=== PATIENT | male | born 1965 | race Two or more races ===

== ENCOUNTER → 2024-12-10 | Outpatient (CLI) | payer MEDICAID, SELFPAY ==
--- NOTE | 2024-12-10 08:30 | XR_ITS ---
Examination: MRI lumbar spine without contrast Date and time of exam: December 10, 2024 at 0918 hrs. Indications: Low back pain radiating to both legs beginning 3 years ago Technique: Multiple MRI axial and sagittal sections lumbar spine. Sagittal T2-weighted images, TR 3500, TE 118 T1 weighted transverse sections, TR 688 T8.5, T2-weighted sagittal sections T1 weighted sagittal sections TR 621, TE 30 T2 axial sections, TR 4, 190, TE 84. Findings: Spondylolisthesis L5 on S1 Advanced degenerative disc disease L4-L5, moderate degenerative disc disease L5-S1 L5-S1 marked left facet arthropathy narrowing the left lateral margin of the thecal sac, 8mm central lumbar disc bulge extending to the left foraminal region with severe left L5 ganglionic compression L4-L5 4 mm central lumbar disc bulge More cephalad levels unremarkable Impression: L5-S1 marked left facet arthropathy narrowing the left lateral margin of the thecal sac, 8mm central lumbar disc bulge extending to the left foraminal region with severe left L5 ganglionic compression L4-5 4 mm central lumbar disc bulge
== END | disposition home or self-care (01) ==
PROVIDERS: PCP Registered Nurse Community Health; Referring Provider Registered Nurse Community Health; Visit Provider Registered Nurse Community Health
DX: M48.07 Spinal stenosis, lumbosacral region (principal); G95.20 Unspecified cord compression; M51.369 Other intervertebral disc degeneration, lumbar region without mention of lumbar back pain or lower extremity pain
CPT/HCPCS: 72148

== ENCOUNTER 2025-09-13 19:16 | Emergency (ER) | payer MEDICAID, SELFPAY ==
[2025-09-13 19:39] VITALS: BP 183/98; PULSE 61; RESP 19; TEMP 36.8; O2SAT 99; BMI 28.0
--- NOTE | 2025-09-13 19:43 | PD.EDRME ---
Rapid Medical Screening Exam E Arrival date/time: 09/13/25 19:16 Chief Complaint: Abdominal Pain Time Seen by Provider: 09/13/25 19:30 Vital signs: Vital Signs Temperature 98.3 F 09/13/25 19:39 Pulse Rate 61 09/13/25 19:39 Respiratory Rate 19 09/13/25 19:39 Blood Pressure 183/98 H 09/13/25 19:39 Pulse Oximetry (%) 99 09/13/25 19:39 Oxygen Delivery Method Room Air 09/13/25 19:39 [facility] Narrative: N/V/D, abdominal pain started today Exam: Epigastric tenderness. No acute distress Clinical Impression: Abdominal pain
--- NOTE | 2025-09-13 19:44 | EKG_ITS ---
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
[2025-09-13] MEDS: KETOROLAC INJ 30 MG/ML VIAL IM (20:00)
[2025-09-13 20:36] LABS: Collection Type, Urine Clean Catch; Squamous Epithelial Cell,Urine 0 /hpf (0-5)
[2025-09-13 20:43] LABS: Bacteria,Urine Rare; Bilirubin,Urine Negative (Negative); Blood,Urine Negative (Negative); Clarity,Urine Clear (Clear/Hazy); Color,Urine Yellow (Lt Yel-Yel); Glucose, Urine 2+ (Negative); Ketones,Urine 2+ (Negative); Leukocyte Esterase,Urine Negative (Negative); Nitrite,Urine Negative (Negative); PH,Urine 8.5 (5.0-7.0); Protein,Urine 1+ (Neg - Trace); RBC,Urine 7 /hpf (0-3); Specific Gravity,Urine 1.029 (1.001-1.035); Urobilinogen,Urine Negative mg/dL (0.0-1.0); WBC,Urine < 1 /hpf (0-5)
[2025-09-13 21:23] LABS: Basophils # (Auto) 0.0 Thou/mm3 (0.0-0.2); Basophils % (Auto) 0 % (0-2.5); Eosinophils # (Auto) 0.0 Thou/mm3 (0.0-0.5); Eosinophils % (Auto) 0 % (0-10); Hematocrit 39.3 % (41.0-53.0); Hemoglobin 14.3 g/dL (13.5-16.0); Immature Granulocytes Auto 0.08 Thou/mm3 (0.00-0.00); Lymphocytes # (Auto) 1.4 Thou/mm3 (1.0-4.8); Lymphocytes % (Auto) 10 % (10-50); Mean Corpuscular HGB Conc 36.4 g/dl (31.0-37.0); Mean Corpuscular Hemoglobin 29.9 pg (25.0-35.0); Mean Corpuscular Volume 82 fL (80-100); Monocytes # (Auto) 0.4 Thou/mm3 (0.0-0.8); Monocytes % (Auto) 3 % (0-12); Neutrophils # (Auto) 12.3 Thou/mm3 (1.8-7.7); Neutrophils % (Auto) 87 % (37-80); Nucleated Red Blood Cell # 0.00 Thou/mm3 (0.00-0.00); Nucleated Red Blood Cell % 0 /100 WBC (0); Platelet Count 209 Thou/mm3 (140-440); RDW Standard Deviation 37.5 fL (35.1-43.9); Red Blood Count 4.78 Miln/mm3 (4.50-5.90); White Blood Count 14.1 Thou/mm3 (3.8-10.6)
[2025-09-13 22:00] LABS: Alanine Aminotransferase 35 U/L (10-49); Albumin, Serum 4.8 gm/dL (3.5-5.0); Albumin/Globulin Ratio 1.8 (1.2-2.2); Alkaline Phosphatase 97 U/L (46-116); Anion Gap 11 (7-16); Aspartate Amino Transferase 30 U/L (0-34); BUN/Creatinine Ratio 11 Ratio (12-20); Bilirubin,Total 0.5 mg/dL (0.3-1.2); Blood Urea Nitrogen 10 mg/dL (9-23); Calcium 9.4 mg/dL (8.3-10.6); Calcium (Corrected) 9.4 mg/dL (8.5-10.1); Carbon Dioxide 27.1 mMol/L (20.0-31.0); Chloride 105 mMol/L (98-107); Creatinine (Component) 0.9 mg/dL (0.6-1.3); Estimated Creatinine Clearance 98.5 mL/min (>60); Globulin 2.6 gm/dL (2.3-3.5); Glucose 144 mg/dL (74-106); Lipase 27 U/L (12-53); Osmolality,Calculated 286 (275-295); Potassium 3.2 mMol/L (3.4-5.1); Sodium 143 mMol/L (136-145); Total Protein 7.4 gm/dL (5.7-8.2); Troponin I < 0.020 ng/mL (0.0-0.045); eGFR > 60 See Note
--- NOTE | 2025-09-13 22:25 | XR_ITS ---
Examination: CT abdomen with intravenous contrast CT pelvis with intravenous contrast 2-D coronal reconstructions 2-D sagittal reconstructions Date and time of exam: September 13, 2025, 11:43 p.m., comparison May 15, 2024 INDICATIONS: Generalized abdominal pain nausea vomiting 1 week worse today. CTDI: vol (mGy) 9.59 DLP: (mGycm) 592 Technique: Multiple axial sections of the abdomen and pelvis have been obtained. 64 slice high-resolution scanner used. 3 mm axial sections have been obtained, post intravenous injection 60 cc Isovue-370 2-D sagittal, coronal reconstructions obtained. Low dose protocols were performed. One or more of the following dose reduction techniques were used; automated exposure control, adjustment of the mA and/or KV according to patient size, use of iterative reconstruction technique. Findings: 10 mm right lobe liver cyst 5 mm right lobe liver cyst No biliary tract dilatation Absent gallbladder Spleen not enlarged No pancreatic or adrenal mass No extrahepatic biliary tract dilatation No renal or ureteral calculi, no hydronephrosis Aorta normal size Tiny fat-containing umbilical hernia Normal appendix Colonic diverticulosis A few loops of fluid distended small bowel in the left abdomen for instance axial image 105 with wall thickening Diffuse thickening of the rectal wall Mild prostatomegaly Intact urinary bladder Fat-containing right inguinal hernia Grade 1 spondylolisthesis L5 on S1 with advanced degenerative disc disease L4-L5, L5-S1 IMPRESSION: Normal appendix No renal or ureteral calculi Abnormal fluid distended small bowel loops in the left abdomen, consider ileus, enteritis such as Crohn's disease, clinical correlation advised If there is a clinical picture of early small bowel obstruction, recommend 3 view abdominal series follow-up
--- NOTE | 2025-09-14 00:44 | PD.EDABDPN ---
ED Abdominal Pain RME/HPI General Chief Complaint: Abdominal Pain Stated complaint: ABD PAIN Time seen by provider: 09/13/25 19:30 Arrival date/time: 09/13/25 19:16 RME / HPI RME / HPI narrative: N/V/D, abdominal pain started today Dr[facility] ED Evaluation: 59yo female Related Data Home Medications ?Medication ?Instructions ?Recorded ?Confirmed losartan 50 mg tablet 50 mg PO BID 09/11/19 09/11/19 naproxen 500 mg tablet 500 mg PO BID PRN Pain 09/11/19 09/11/19 omeprazole 20 mg tablet,delayed 20 mg PO QDAY 09/11/19 09/11/19 release simvastatin 40 mg tablet 40 mg PO QDAY 09/11/19 09/11/19 Previous Rx's ?Medication ?Instructions ?Recorded hydrocodone 10 mg-acetaminophen 1 tab PO Q6H PRN pain #30 tabs 09/13/19 325 mg tablet ([place]) ondansetron HCl 4 mg tablet 4 mg PO Q8H PRN nausea and 11/09/20 (Zofran) vomiting #6 tabs hydrocodone 5 mg-acetaminophen 325 1 tab PO Q8H PRN pain #7 tabs /16/24 mg tablet Allergies Allergy/AdvReac Type Severity Reaction Status Date / Time No Known Allergies Allergy Verified 09/13/25 19:18 Review of Systems Review of Systems Systems Reviewed: All systems reviewed, normal except as documented Past Medical History Past Medical History NEUROLOGIC: Negative Seizures CARDIAC: Positive Cardiac Disorders, Hypercholesterolemia and Hypertension; Negative Congestive Heart Failure RESPIRATORY: Negative Chronic Obstructive Pulmonary Disease (COPD) or Asthma GASTROINTESTINAL: Positive Gall Bladder Disease GENITOURINARY: Negative Renal Disease ENDOCRINE: Negative Diabetes Mellitus Type 1 or Diabetes Mellitus Type 2 HEMATOLOGIC: Negative Sickle Cell Disease OTHER HISTORY: Negative Blood Transfusions, Blood Transfusion Reaction or Anesthesia Reactions Social History SMOKING STATUS: Current every day smoker SUBSTANCE USE: marijuana (Occasional use ) Course Quality Measures none Orders Category Date Time Status CT Screening NOW Care 09/13/25 22:25 Active EKG (ED ONLY) *Do not use* NOW Care 09/13/25 19:44 Completed IV [Insert IV] NOW Care 09/13/25 23:[address] abdomen pelvis w con Stat Exams 09/13/25 22:25 Completed EKG (ED Only) Stat Exams 09/13/25 19:44 Draft CBC Stat Lab 09/13/25 20:38 Completed CMP [Comprehensive Metabolic Panel] Stat Lab 09/13/25 20:38 Completed Lipase Stat Lab 09/13/25 20:38 Completed Troponin I Stat Lab 09/13/25 20:38 Completed UA [Urinalysis] Stat Lab 09/13/25 20:19 Completed Ketorolac Inj [Toradol Inj] Med 09/13/25 19:45 Discontinued 30 mg IM X1 ONE Ondansetron Odt [Zofran Odt] Med 09/13/25 19:45 Discontinued 4 mg PO X1 ONE Vital Signs Vital signs: Vital Signs Temperature 98.3 F 09/13/25 19:39 Pulse Rate 61 09/13/25 19:39 Respiratory Rate 19 09/13/25 19:39 Blood Pressure 183/98 H 09/13/25 19:39 Pulse Oximetry (%) 99 09/13/25 19:39 Oxygen Delivery Method Room Air 09/13/25 19:39 Abdominal Pain MDM MDM Narrative MDM Narrative:: Scribe Attestation: 09/14/25 - Sylwia Amos am scribing for and in the presence of Dr. Pfeiffer. Patient data External records reviewed:: [facility] previous records (Per chart review, patient was seen here on 05/15/24 for acute proctitis.) Clinical information provided by:: patient Social determinants that could affect healthcare access:: none Patient has the following chronic illnesses:: HTN, HLD How is presenting disease/condition affected by chronic disease/condition?: uneffected by Evaluation data The following diagnostics were reviewed and interpreted by me:: lab results and radiology exam(s) Lab and/or radiology exams considered but not ordered:: none Interpretation Summary: [facility] Report Signed Patient: PARAMJIT GUILLAUME. Record#: [id number] Birthdate: 1965 Age/Sex: 59 / M Location: [facility] Attending Dr: Ordering Physician: Nicholas Parnell PA-C Date of Service: 09/13/25 Procedure(s): CT abdomen pelvis w con Accession Number(s): [id number] cc: Marlon Ayoub MD; Barbara Macdonald NP; Nicholas Parnell PA-C~ Examination: CT abdomen with intravenous contrast CT pelvis with intravenous contrast 2-D coronal reconstructions 2-D sagittal reconstructions Date and time of exam: September 13, 2025, 11:43 p.m., comparison May 15, 2024 INDICATIONS: Generalized abdominal pain nausea vomiting 1 week worse today. CTDI: vol (mGy) 9.59 DLP: (mGycm) 592 Technique: Multiple axial sections of the abdomen and pelvis have been obtained. 64 slice high-resolution scanner used. 3 mm axial sections have been obtained, post intravenous injection 60 cc Isovue-370 2-D sagittal, coronal reconstructions obtained. Low dose protocols were performed. One or more of the following dose reduction techniques were used; automated exposure control, adjustment of the mA and/or KV according to patient size, use of iterative reconstruction technique. Findings: 10 mm right lobe liver cyst 5 mm right lobe liver cyst No biliary tract dilatation Absent gallbladder Spleen not enlarged No pancreatic or adrenal mass No extrahepatic biliary tract dilatation No renal or ureteral calculi, no hydronephrosis Aorta normal size Tiny fat-containing umbilical hernia Normal appendix Colonic diverticulosis A few loops of fluid distended small bowel in the left abdomen for instance axial image 105 with wall thickening Diffuse thickening of the rectal wall Mild prostatomegaly Intact urinary bladder Fat-containing right inguinal hernia Grade 1 spondylolisthesis L5 on S1 with advanced degenerative disc disease L4-L5, L5-S1 IMPRESSION: Normal appendix No renal or ureteral calculi Abnormal fluid distended small bowel loops in the left abdomen, consider ileus, enteritis such as Crohn's disease, clinical correlation advised If there is a clinical picture of early small bowel obstruction, recommend 3 view abdominal series follow-up Dictated By: Marlon Ayoub MD Signed By: <Electronically signed by Marlon Ayoub MD in OV> 09/14/25 0003 Medications / Prescriptions Medications or Prescriptions considered but not ordered:: none Medication administrations:: Medication Administration History Discontinued Medications Ketorolac Tromethamine (Ketorolac Inj 30 Mg/Ml Vial) 30 mg IM X1 ONE Stop: 09/13/25 19:46 Last Admin: 09/13/25 20:00 Dose: 30 mg Documented By: AUSTIN Ondansetron HCl (Ondansetron Odt 4 Mg Tabrap) 4 mg PO X1 ONE; Protocol Stop: 09/13/25 19:46 Last Admin: 09/13/25 20:02 Dose: Not Given Documented By: AUSTIN Non-Admin Reason: Patient Refused see above Discharge Plan Prescriptions/Referrals Prescriptions/Med Rec: No Action losartan 50 mg Tablet 50 mg PO BID simvastatin 40 mg Tablet 40 mg PO QDAY naproxen 500 mg Tablet 500 mg PO BID PRN (Reason: Pain) omeprazole 20 mg Tablet,Delayed Release (Dr/Ec) 20 mg PO QDAY hydrocodone-acetaminophen [[place]] 10-325 mg tablet 1 tab PO Q6H MDD 3 PRN (Reason: pain) Qty: 30 0RF ondansetron HCl [Zofran] 4 mg tablet 4 mg PO Q8H PRN (Reason: nausea and vomiting) Qty: 6 0RF hydrocodone-acetaminophen 5-325 mg tablet 1 tab PO Q8H MDD 3 PRN (Reason: pain) Qty: 7 0RF Referrals: Barbara Macdonald FREELANCE OPERATOR [Primary Care Provider] - In 1 week Patient/Caregiver Discharge Instructions Print Language: Slovak
--- NOTE | 2025-09-14 00:47 | PD.EDABDPN ---
ED Abdominal Pain RME/HPI General Chief Complaint: Abdominal Pain Stated complaint: ABD PAIN Time seen by provider: 09/13/25 19:30 Arrival date/time: 09/13/25 19:16 Limitations: no limitations RME / HPI RME / HPI narrative: N/V/D, abdominal pain started today Dr[facility] ED Evaluation: 59yo male with history of HTN, HLD presents to the ED for a chief complaint of mid abdominal pain x yesterday. Patient states since yesterday, his pain has gotten progressively worse, reporting he's had nonbloody N/V/D throughout the day today. Patient denies any fever, chills, or any other associated symptoms. Denies any tobacco, alcohol, or illicit drug use. NKA. Related Data Home Medications ?Medication ?Instructions ?Recorded ?Confirmed losartan 50 mg tablet 50 mg PO BID 09/11/19 09/11/19 naproxen 500 mg tablet 500 mg PO BID PRN Pain 09/11/19 09/11/19 omeprazole 20 mg tablet,delayed 20 mg PO QDAY 09/11/19 09/11/19 release simvastatin 40 mg tablet 40 mg PO QDAY 09/11/19 09/11/19 Previous Rx's ?Medication ?Instructions ?Recorded hydrocodone 10 mg-acetaminophen 1 tab PO Q6H PRN pain #30 tabs 09/13/19 325 mg tablet ([place]) ondansetron HCl 4 mg tablet 4 mg PO Q8H PRN nausea and 11/09/20 (Zofran) vomiting #6 tabs hydrocodone 5 mg-acetaminophen 325 1 tab PO Q8H PRN pain #7 tabs 08/16/24 mg tablet Allergies Allergy/AdvReac Type Severity Reaction Status Date / Time No Known Allergies Allergy Verified 09/13/25 19:18 Review of Systems Review of Systems Systems Reviewed: All systems reviewed, normal except as documented ED Exam General Limitations: Present no limitations General appearance: Present alert and in no apparent distress Head Head exam: Present atraumatic Eye Eye exam: Present normal appearance, PERRL and EOMI ENT ENT exam: Present normal exam, normal oropharynx and mucous membranes moist Neck Neck exam: Present normal inspection, full ROM and trachea midline Chest Chest inspection: Present normal inspection and symmetric chest wall rise Respiratory Respiratory exam: Present normal lung sounds bilaterally Cardiovascular Cardiovascular exam: Present regular rate, normal rhythm and normal heart sounds Abdominal Exam Abdominal exam: Present soft and other (periumbilical pain); Absent guarding or rebound Extremities Exam Extremities exam: Present normal inspection and full ROM Back Exam Back exam: Present normal inspection and full ROM Neurological Exam Neurological exam: Present alert, oriented X3 and CN II-XII intact Psychiatric Psychiatric exam: Present normal affect and normal mood Skin Skin exam: Present warm, dry, intact and normal color Course Quality Measures none Orders Category Date Time Status CT Screening NOW Care 09/13/25 22:25 Active EKG (ED ONLY) *Do not use* NOW Care 09/13/25 19:44 Completed IV [Insert IV] NOW Care 09/13/25 23:[address] abdomen pelvis w con Stat Exams 09/13/25 22:25 Completed EKG (ED Only) Stat Exams 09/13/25 19:44 Draft CBC Stat Lab 09/13/25 20:38 Completed CMP [Comprehensive Metabolic Panel] Stat Lab 09/13/25 20:38 Completed Lipase Stat Lab 09/13/25 20:38 Completed Troponin I Stat Lab 09/13/25 20:38 Completed UA [Urinalysis] Stat Lab 09/13/25 20:19 Completed Ketorolac Inj [Toradol Inj] Med 09/13/25 19:45 Discontinued 30 mg IM X1 ONE Ondansetron Odt [Zofran Odt] Med 09/13/25 19:45 Discontinued 4 mg PO X1 ONE Potassium Chloride [K-Dur] Med 09/14/25 00:50 Discontinued 40 meq PO X1 ONE Ringers Lactated 1000 ml [Lactated Ringers] 1,000 ml Med 09/14/25 01:00 Ordered IV 999 mls/hr Vital Signs Vital signs: Vital Signs Temperature 98.3 F 09/13/25 19:39 Pulse Rate 61 09/13/25 19:39 Respiratory Rate 19 09/13/25 19:39 Blood Pressure 183/98 H 09/13/25 19:39 Pulse Oximetry (%) 99 09/13/25 19:39 Oxygen Delivery Method Room Air 09/13/25 19:39 Abdominal Pain MDM MDM Narrative MDM Narrative:: Labs with evidence of leukocytosis 14.1, left shift of 87%, patient with mild hypokalemia potassium 3.2 will replete in the emergency department. No transaminitis troponin not elevated lipase normal urinalysis with any evidence of nitrites, no leuk esterase, 7 red blood cells, rare bacteria. CT abdomen pelvis with liver cyst, no gallbladder, no pancreatic masses, no hydronephrosis, tiny fat-containing umbilical hernia, few loops of fluid distended small bowel in the left abdomen, colonic diverticulosis, fat-containing inguinal hernia degenerative disc disease Patient data External records reviewed:: [facility] previous records (Per chart review, patient was seen here on 05/15/24 for acute proctitis.) Clinical information provided by:: patient Social determinants that could affect healthcare access:: none Patient has the following chronic illnesses:: HTN, HLD How is presenting disease/condition affected by chronic disease/condition?: uneffected by Evaluation data The following diagnostics were reviewed and interpreted by me:: lab results, radiology exam(s) and EKG tracing(s) (EKG done at 1946, sinus rhythm, rate of 63, normal intervals, nonspecific ST-T changes, not a cardiac alert, according to my interpretation.) Lab and/or radiology exams considered but not ordered:: none Interpretation Summary: [facility] Report Signed Patient: PARAMJIT GUILLAUME Record#: [id number] Birthdate: 1965 Age/Sex: 59 / M Location[facility] Attending Dr: Ordering Physician: Nicholas Parnell PA-C Date of Service: 09/13/25 Procedure(s): CT abdomen pelvis w con Accession Number(s): [id number] cc: Marlon Ayoub MD; Barbara Macdonald NP; Nicholas Parnell PA-C~ Examination: CT abdomen with intravenous contrast CT pelvis with intravenous contrast 2-D coronal reconstructions 2-D sagittal reconstructions Date and time of exam: September 13, 2025, 11:43 p.m., comparison May 15, 2024 INDICATIONS: Generalized abdominal pain nausea vomiting 1 week worse today. CTDI: vol (mGy) 9.59 DLP: (mGycm) 592 Technique: Multiple axial sections of the abdomen and pelvis have been obtained. 64 slice high-resolution scanner used. 3 mm axial sections have been obtained, post intravenous injection 60 cc Isovue-370 2-D sagittal, coronal reconstructions obtained. Low dose protocols were performed. One or more of the following dose reduction techniques were used; automated exposure control, adjustment of the mA and/or KV according to patient size, use of iterative reconstruction technique. Findings: 10 mm right lobe liver cyst 5 mm right lobe liver cyst No biliary tract dilatation Absent gallbladder Spleen not enlarged No pancreatic or adrenal mass No extrahepatic biliary tract dilatation No renal or ureteral calculi, no hydronephrosis Aorta normal size Tiny fat-containing umbilical hernia Normal appendix Colonic diverticulosis A few loops of fluid distended small bowel in the left abdomen for instance axial image 105 with wall thickening Diffuse thickening of the rectal wall Mild prostatomegaly Intact urinary bladder Fat-containing right inguinal hernia Grade 1 spondylolisthesis L5 on S1 with advanced degenerative disc disease L4-L5, L5-S1 IMPRESSION: Normal appendix No renal or ureteral calculi Abnormal fluid distended small bowel loops in the left abdomen, consider ileus, enteritis such as Crohn's disease, clinical correlation advised If there is a clinical picture of early small bowel obstruction, recommend 3 view abdominal series follow-up Dictated By: Marlon Ayoub MD Signed By: <Electronically signed by Marlon Ayoub MD in OV> 09/14/25 0003 Medications / Prescriptions Medications or Prescriptions considered but not ordered:: none Medication administrations:: Medication Administration History Lactated Ringer's (Lactated Ringers) 1,000 mls @ 999 mls/hr IV .Q1H1M ONE Stop: 09/14/25 02:00 Discontinued Medications Ketorolac Tromethamine (Ketorolac Inj 30 Mg/Ml Vial) 30 mg IM X1 ONE Stop: 09/13/25 19:46 Last Admin: 09/13/25 20:00 Dose: 30 mg Documented By: AUSTIN Ondansetron HCl (Ondansetron Odt 4 Mg Tabrap) 4 mg PO X1 ONE; Protocol Stop: 09/13/25 19:46 Last Admin: 09/13/25 20:02 Dose: Not Given Documented By: AUSTIN Non-Admin Reason: Patient Refused Potassium Chloride (Potassium Chloride 20 Meq Tabcr) 40 meq PO X1 ONE Stop: 09/14/25 00:51 see above Consultations Consultation(s) initiated? (list below): No Diagnosis Differential diagnosis abdominal pain: gastroenteritis, small bowel obstruction and other (ileus, dehydration, electrolyte abnormality) Most likely diagnosis given after review of the tests above:: see clinical impression below Admission Indicated Admission indicated?: not indicated Admission Request Was there a request for admission?: No Disposition Plan Disposition Plan: Discharge Discharge Attestation Discharge Attestation: The patient and all family members were given an opportunity to ask questions and understood the discharge instructions. Discharge instructions specifically effects, indications for sooner follow up or return to the emergency department, and the expected course of current diagnosis. Patient condition: Stable Discharge Plan Plan Patient Disposition: HOME (Self Care) Prescriptions/Referrals Prescriptions/Med Rec: No Action losartan 50 mg Tablet 50 mg PO BID simvastatin 40 mg Tablet 40 mg PO QDAY naproxen 500 mg Tablet 500 mg PO BID PRN (Reason: Pain) omeprazole 20 mg Tablet,Delayed Release (Dr/Ec) 20 mg PO QDAY hydrocodone-acetaminophen [[place]] 10-325 mg tablet 1 tab PO Q6H MDD 3 PRN (Reason: pain) Qty: 30 0RF ondansetron HCl [Zofran] 4 mg tablet 4 mg PO Q8H PRN (Reason: nausea and vomiting) Qty: 6 0RF hydrocodone-acetaminophen 5-325 mg tablet 1 tab PO Q8H MDD 3 PRN (Reason: pain) Qty: 7 0RF Referrals: Barbara Macdonald UTILITY WORKER FILM PROCESSING [Primary Care Provider] - In 1 week Problem List Clinical Impression: Diarrhea, Vomiting, Abdominal pain Patient/Caregiver Discharge Instructions Education Materials: Abdominal Pain, ED Diarrhea, Unknown Cause, ED Vomiting (Adult) Additional Instructions: Por favor hacer oumou con bartlett medico de cabecera esta semana para re-evaluacion. Genna laboratorios hoy demostraron que tiene un proceso inflamatorio ron no tiene evidencia de Print Language: Togolese Stand Alone Forms: Karina Award Info., Patient Portal Info Letter
[2025-09-14] MEDS: RINGERS LACTATED 1000 ML 1,000 ML 999 ML IV (01:05)
[2025-09-14 01:09] VITALS: BP 173/103; PULSE 61; RESP 17; TEMP 37.2; O2SAT 96
== END 2025-09-14 01:53 | disposition home or self-care (01) ==
PROVIDERS: Physician Assistant; Emergency Provider Emergency Medicine; PCP Nurse Practitioner Family
DX: K76.89 Other specified diseases of liver (principal); R19.7 Diarrhea, unspecified; R11.2 Nausea with vomiting, unspecified; I10 Essential (primary) hypertension; D72.829 Elevated white blood cell count, unspecified; E87.6 Hypokalemia; K42.9 Umbilical hernia without obstruction or gangrene; K63.89 Other specified diseases of intestine; K57.30 Diverticulosis of large intestine without perforation or abscess without bleeding; K40.90 Unilateral inguinal hernia, without obstruction or gangrene, not specified as recurrent; M51.369 Other intervertebral disc degeneration, lumbar region without mention of lumbar back pain or lower extremity pain; M51.379 Other intervertebral disc degeneration, lumbosacral region without mention of lumbar back pain or lower extremity pain
CPT/HCPCS: 36415; 74177; 80053; 81001; 83690; 84484; 85025; 93005; 96360; 96372; 99284; A4649; J1885; J7120; Q9967; A9270